=== PATIENT | female | born 1960 ===

== ENCOUNTER 2021-01-14 05:50 | Day surgery (SDC) | payer OTHER ==
[~2021-01-14 05:50] MED LIST: ARMOUR THYROID60 M1 PO; CLONAZE PO; LUNESTA PO
== END 2021-01-14 19:10 | disposition home or self-care (01) ==
LOC: CIR.AMB 05:50
PROVIDERS: ATTEND Obstetrics & Gynecology
DX: N84.0 Polyp of corpus uteri (principal); Z20.822 Contact with and (suspected) exposure to COVID-19